=== PATIENT | female | born 1945 | race Caucasian/White ===

== ENCOUNTER 2017-11-12 17:17 | Observation (INO) | payer OTHER, BC ==
[2017-11-12] MEDS ORDERED: ACETAMINOPHEN 500 MG TAB PO PRN (17:45)
[2017-11-12] MEDS ORDERED: ONDANSETRON 4 MG/2 ML VIAL IV PRN (17:45)
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
[2017-11-12] MEDS ORDERED: BACLOFEN 10 MG TAB PO PRN (18:10)
[2017-11-12 18:39] VITALS: BMI 22.6
[2017-11-12 18:42] LABS: Absolute Lymphocytes (CBC) 1.3 K/uL (0.7-4.9); Absolute Monocytes 0.8 K/uL (0.1-1.3); Absolute Neutrophil 4.7 K/uL (1.8-8.0); Basophils % 1.2 % (0-1.3); Eosinophils % 10.2 % (0-4.4); Hematocrit 40.4 % (36.0-45.0); Lymphocytes % 16.9 % (15.3-44.8); MCH 25.9 pg (27.0-35.0); MCV 79.3 fL (80-100); MPV 9.2 fL (7.6-11.3); Monocytes % 10.6 % (3.3-12.3); RBC Red Blood Cell Count 5.09 M/uL (3.86-4.86)
[2017-11-12 19:35] LABS: Albumin 4.5 g/dL (3.2-5.5); Bilirubin Total 0.7 mg/dL (0.3-1.2); Magnesium 2.1 mg/dL (1.8-2.5)
[2017-11-12 19:39] LABS: Thyroid Stimulating Hormone 6.64 uIU/mL (0.34-5.60)
[2017-11-12] MEDS ORDERED: CEFEPIME/SWI 1gm 1 GM/10 ML SYR IV SCH (21:00)
[2017-11-12] MEDS ORDERED: CEFEPIME 1 GM/VIAL IV SCH (21:00)
[2017-11-12] MEDS ORDERED: TOLTERODINE LA 4 MG CAP PO SCH (21:00)
[2017-11-12] MEDS ORDERED: AMITRIPTYLINE 10 MG TAB PO SCH (21:00)
[2017-11-12 21:03] LABS: Urine Appearance CLOUDY; Urine Bilirubin NEGATIVE (NEG); Urine Blood TRACE (NEG); Urine Color YELLOW; Urine Glucose NEGATIVE (NEG); Urine Protein NEGATIVE (NEG); Urine Specific Gravity 1.015 (1.005-1.030); Urine Urobilinogen 0.2 mg/dL (0.2-1.0)
[2017-11-12 21:18] LABS: Urine Microscopic Reflex ORDER UMIC
[2017-11-12 21:22] LABS: Urine Bacteria <20 /HPF (<20); Urine Culture Reflex Order REFLEXED; Urine RBC <5 /HPF (NONE SEEN)
[2017-11-12] MEDS: GABAPENTIN 300 MG CAP PO SCH (22:13)
[2017-11-12] MEDS: ENOXAPARIN 40 MG/0.4 ML SQ SCH (22:16)
--- NOTE | 2017-11-12 22:35 | RAD REPORT ---
EXAM DESCRIPTION: RAD - Chest Single View - 11/12/2017 10:27 pm CLINICAL HISTORY: PICC line placement. COMPARISON: None. FINDINGS: Portable chest was obtained following placement of a right upper extremity PICC line. The catheter tip is in the SVC.
[2017-11-13] MEDS ORDERED: LEVOTHYROXINE SOD 0.05 MG TABLET PO SCH (06:00)
[2017-11-13] MEDS ORDERED: LEVOTHYROXINE SOD 0.125 MG TAB PO SCH (06:00)
[2017-11-13] MEDS ORDERED: PANTOPRAZOLE 40MG TABLET PO SCH (07:30)
[2017-11-13] MEDS ORDERED: PNEUMOCOCCAL VACCINE 0.5 ML IMVAC ONE (08:00)
[2017-11-13] MEDS: ENOXAPARIN 40 MG/0.4 ML SQ SCH (08:34)
[2017-11-13] MEDS: GABAPENTIN 300 MG CAP PO SCH ×2 (08:34→13:19)
[2017-11-13] MEDS ORDERED: CEFEPIME/SWI 1gm 1 GM/10 ML SYR IV SCH (09:00)
[2017-11-13] MEDS ORDERED: DALFAMPRIDINE 10 MG PO SCH (09:00)
--- NOTE | 2017-11-13 10:09 | ECHO ---
HEIGHT: 5 ft 5 in WEIGHT: 136 lb 0 oz DATE OF STUDY: 11/13/[address]: Keon Rosales DO 2-DIMENSIONAL: YES M.MODE: YES DOPPLER: YES COLOR FLOW: YES TDS: PORTABLE: DEFINITY: BUBBLE STUDY: DIAGNOSIS: EVALUATE FOR CONGESTIVE HEART FAILURE CARDIAC HISTORY: CATHERIZATION: NO SURGERY: NO PROSTHETIC VALVE: NO PACEMAKER: NO MEASUREMENTS (cm) DIASTOLIC (NORMALS) SYSTOLIC (NORMALS) IVSd 0.9 (0.6-1.2) LA Diam 2.9 (1.9-4.0) LVEF 76% LVIDd 3.1 (3.5-5.7) LVIDs 1.8 (2.0-3.5) %FS 44% LVPWd 1.0 (0.6-1.2) Ao Diam 2.5 (2.0-3.7) 2 DIMENSIONAL ASSESSMENT: RIGHT ATRIUM: NORMAL LEFT ATRIUM: NORMAL RIGHT VENTRICLE: NORMAL LEFT VENTRICLE: NORMAL TRICUSPID VALVE: NORMAL MITRAL VALVE: NORMAL PULMONIC VALVE: NORMAL AORTIC VALVE: SCLEROSIS PERICARDIAL EFFUSION: NONE AORTIC ROOT: NORMAL LEFT VENTRICULAR WALL MOTION: NORMAL DOPPLER/COLOR FLOW: NO AORTIC STENOSIS OR AORTIC REGURGITATION. MILD TRICUSPID REGURGITATION. NORMAL RIGHT VENTRICULAR SYSTOLIC PRESSURE. IMPAIRED LEFT VENTRICULAR RELAXATION. COMMENTS: NORMAL LEFT VENTRICULAR EJECTION FRACTION. AORTIC SCLEROSIS WITH NO AORTIC STENOSIS OR AORTIC REGURGITATION. MILD TRICUSPID REGURGITATION. IMPAIRED LEFT VENTRTRICULAR RELAXATION. TECHNOLOGIST: SANJEEV ARNDT
--- NOTE | 2017-11-13 10:21 | P.PN ---
Subjective Date of Service: 11/13/17 Primary Care Provider: Dr. García Chief Complaint: Failed outpatient UTI, multi resistant Subjective: Improving (No complaints noted. PICC line in place) Physical Examination - Vital Signs Temperature: 97.7 F Blood Pressure: 135/62 Pulse: 73 Respirations: 18 Pulse Ox (%): 97 - Physical Exam General: Alert, In no apparent distress, Oriented x3, Cooperative HEENT: Atraumatic Neck: Supple Respiratory: Clear to auscultation bilaterally, Normal air movement Cardiovascular: Normal pulses, Regular rate/rhythm Gastrointestinal: Normal bowel sounds, Soft and benign, Non-distended, No masses , No rebound, No guarding Musculoskeletal: No erythema, No tenderness, No warmth Integumentary: No erythema, No warmth, No cyanosis Neurological: Normal speech, Normal strength at 5/5 x4 extr, Normal tone, Normal affect - Studies Laboratory Data (last 24 hrs) 11/12/17 18:30: Sodium 141, Potassium 4.0, BUN 15, Creatinine 0.84, Glucose 105 , Magnesium 2.1, Total Bilirubin 0.7, AST 20, ALT 15, Alkaline Phosphatase 87 11/12/17 18:30: WBC 7.7, Hgb 13.2, Hct 40.4, Plt Count 291 Medications List Reviewed: Yes Assessment & Plan - Problems (Diagnosis) (1) UTI (urinary tract infection) Onset Date: 11/13/17 Current Visit: Yes Status: Acute Plan: Patient with multi resistant, failed outpatient UTI. Patient positive for Pseudomonas and Acintobacter. Will continue with cefepime. Will arrange for IV antibiotic therapy for 7 days. If approved and set up then the patient can be discharged home. Patient will need home health for PICC line care. Repeat urine culture obtained. This can be further monitored by her PCP. Lab reviewed. Will recommend that she follow up with urology as an outpatient to further evaluate Qualifiers: Urinary tract infection type: site unspecified Hematuria presence: without hematuria Qualified Code(s): N39.0 - Urinary tract infection, site not specified (2) Edema Onset Date: 11/13/17 Current Visit: Yes Status: Acute Plan: Patient with bilateral edema to the lower extremities. EKG shows ejection fraction 76%. Will recommend a 1500 cc per day fluid restriction. Will need to monitor this closely. This can be further addressed as an outpatient. Qualifiers: Edema type: unspecified Qualified Code(s): R60.9 - Edema, unspecified (3) Urinary incontinence Onset Date: 11/13/17 Current Visit: Yes Status: Chronic Plan: Patient with chronic urinary incontinence. Will continue with her medication. Recommendation is for the patient follow up with urology as an outpatient to further evaluate. Qualifiers: Urinary Incontinence type: unspecified incontinence Qualified Code(s): R32 - Unspecified urinary incontinence (4) Hypothyroidism Onset Date: 11/13/17 Current Visit: Yes Status: Chronic Plan: Will continue with her medication. Qualifiers: Hypothyroidism type: unspecified Qualified Code(s): E03.9 - Hypothyroidism , unspecified (5) Multiple sclerosis Onset Date: 11/13/17 Current Visit: Yes Status: Chronic Plan: Will continue with her medication. Discharge Plan: Home Plan to discharge in: 24 Hours Time Spent Managing Pts Care (In Minutes): 55
--- NOTE | 2017-11-13 11:48 | P.DS ---
Admission Date: 11/12/17 Discharge Date: 11/13/17 Primary Care Provider: Dr. García Disposition: ROUTINE DISCHARGE Discharge Condition: GOOD Reason for Admission: Failed outpatient UTI, multi resistant Procedures: PICC line placement Echocardiogram: Ejection fraction 76%. Aortic sclerosis with no aortic stenosis or regurgitation noted. Mild tricuspid regurgitation. - Problems (1) UTI (urinary tract infection) Onset Date: 11/13/17 Current Visit: Yes Status: Acute Qualifiers: Urinary tract infection type: site unspecified Hematuria presence: without hematuria Qualified Code(s): N39.0 - Urinary tract infection, site not specified (2) Edema Onset Date: 11/13/17 Current Visit: Yes Status: Acute Qualifiers: Edema type: unspecified Qualified Code(s): R60.9 - Edema, unspecified (3) Urinary incontinence Onset Date: 11/13/17 Current Visit: Yes Status: Chronic Qualifiers: Urinary Incontinence type: unspecified incontinence Qualified Code(s): R32 - Unspecified urinary incontinence (4) Hypothyroidism Onset Date: 11/13/17 Current Visit: Yes Status: Chronic Qualifiers: Hypothyroidism type: unspecified Qualified Code(s): E03.9 - Hypothyroidism , unspecified (5) Multiple sclerosis Onset Date: 11/13/17 Current Visit: Yes Status: Chronic Brief History of Present Illness: 72-year-old female presented to the hospital as a direct admit for fell the patient UTI with multi resistant bacteria. The patient was recently on Cipro started for UTI. Urine culture was obtained. Urine culture was done on 11/05/2017. Urine culture result showed positive for Pseudomonas and Acinetobacter. Multi resistance was noted. The patient required IV antibiotic therapy. The patient was admitted to start therapy. The patient reports some dysuria. She denies any fever or chills. Some discomfort noted to the pelvic region. The patient further reports that she has been hospitalized recently for multiple events. In August she had a severe case of zoster to the right eye. This required hospitalization and transfer to a long-term acute care facility. During the process she had hearing loss. After that she was sent to a rehab facility for for the month of September and October. She eventually went home. That is when she developed the UTI. When I saw the patient, she was without any significant distress. Patient with history of hypothyroidism, multiple sclerosis. She is currently taking medication for urinary incontinence. Hospital Course: During her stay patient did well. Patient did not appear septic. White count and pro calcitonin was unremarkable. Previous information reviewed. Patient has multi resistant failed outpatient UTI. Urine culture was positive for Pseudomonas and Acinetobacter. Arrangements for PICC line was arranged. Patient now with PICC line. Arrangements for IV antibiotic therapy-cefepime 1 g daily as an outpatient with the help of home health has been made. She will continue with IV antibiotic therapy for 7 days. Recommendation is to recheck a cath urine in 7 days. If negative PICC line can be removed. This will be addressed by her PCP. I will inform the PCP prior to discharge. Recommendations for the patient follow up with urology as an outpatient to further monitor and evaluate. UTI prevention education will be provided. Patient with multiple sclerosis. Patient continue with her medications. Patient with hypothyroidism. Patient will continue with medication. Patient has urinary incontinence. Patient will continue with her medication. Patient has mild edema to the lower extremity. Recommendation is to maintain a 1500 cc per day fluid restriction. She is to elevate her legs when sitting or standing. Echocardiogram unremarkable. Vital Signs/Physical Exam: Temp Pulse Resp BP Pulse Ox 97.7 F 73 18 135/62 97 11/13/17 10:20 11/13/17 10:20 11/13/17 10:20 11/13/17 10:20 11/13/17 10:20 General: Alert, In no apparent distress, Oriented x3, Cooperative HEENT: Atraumatic, Mucous membr. moist/pink Neck: Supple Respiratory: Clear to auscultation bilaterally, Normal air movement Cardiovascular: Normal pulses, Regular rate/rhythm Gastrointestinal: Normal bowel sounds, Soft and benign, Non-distended, No tenderness, No masses, No rebound, No guarding Musculoskeletal: No erythema, No tenderness, No warmth Integumentary: No erythema, No warmth, No cyanosis Neurological: Normal speech, Normal strength at 5/5 x4 extr, Normal tone, Normal affect Lymphatics: No axilla or inguinal lymphadenopathy Laboratory Data at Discharge: WBC 7.7 K/uL (4.3-10.9) 11/12/17 18:30 Hgb 13.2 g/dL (12.0-15.0) 11/12/17 18:30 Hct 40.4 % (36.0-45.0) 11/12/17 18:30 Plt Count 291 K/uL (152-406) 11/12/17 18:30 Sodium 141 mEq/L (135-145) 11/12/17 18:30 Potassium 4.0 mEq/L (3.6-5.0) 11/12/17 18:30 BUN 15 mg/dL (6-20) 11/12/17 18:30 Creatinine 0.84 mg/dL (0.44-1.00) 11/12/17 18:30 Glucose 105 mg/dL (65-120) 11/12/17 18:30 Magnesium 2.1 mg/dL (1.8-2.5) 11/12/17 18:30 Total Bilirubin 0.7 mg/dL (0.3-1.2) 11/12/17 18:30 AST 20 IU/L (10-42) 11/12/17 18:30 ALT 15 IU/L (10-60) 11/12/17 18:30 Alkaline Phosphatase 87 IU/L (42-121) 11/12/17 18:30 Home Medications: Baclofen [Lioresal*] 10 mg PO BID 11/12/17 Dalfampridine [Ampyra] 10 mg PO BID 11/12/17 Gabapentin [Neurontin] 300 mg PO TID 11/12/17 Levothyroxine Sodium [Synthroid] 175 mcg PO DAILY 11/12/17 Tolterodine Tartrate [Detrol LA*] 4 mg PO BEDTIME cap 11/13/17 Patient Discharge Instructions: 1. Patient will need a follow up with her PCP within 1 week to follow up this hospitalization. 2. Patient presented with multi resistant failed outpatient UTI. Patient now has a PICC line. Arrangements for IV antibiotic therapy-cefepime 1 g daily as an outpatient with the help of home health has been made. She will continue with IV antibiotic therapy for 7 days. Recommendation is to recheck a cath urine in 7 days. If negative PICC line can be removed. This will be addressed by her PCP. Recommendations for the patient follow up with urology as an outpatient to further monitor and evaluate. UTI prevention education will be provided. 3. Patient with multiple sclerosis. Patient continue with her medications. 4. Patient with hypothyroidism. Patient will continue with medication. 5. Patient has urinary incontinence. Patient will continue with her medication. 6. Patient has mild edema to the lower extremity. Recommendation is to maintain a 1500 cc per day fluid restriction. She is to elevate her legs when sitting or standing. Echocardiogram unremarkable. Diet: Regular Activity: Fall precautions Time spent managing pt's care (in minutes): 55
[2017-11-13 12:29] VITALS: O2SAT 95
[2017-11-13] MEDS ORDERED: CEFEPIME/SWI 1gm 1 GM/10 ML SYR IV ONE (12:45)
[2017-11-13 14:14] VITALS: BP 140/60; TEMP 97.3
[2017-11-14] MEDS ORDERED: CEFEPIME/SWI 2gm 2 GM/20 ML SYR IV SCH (09:00)
== END 2017-11-13 16:47 | disposition home health service (06) ==
LOC: INTOOBSV 17:39 → 4TH 17:39
PROVIDERS: ADMIT Family Medicine; ATTEND Family Medicine
PROC: 02HV33Z Insertion of Infusion Device into Superior Vena Cava, Percutaneous Approach (ICD-10-PCS; principal; 2017-11-12)
DX: N39.0 Urinary tract infection, site not specified (principal); R32 Unspecified urinary incontinence; E03.9 Hypothyroidism, unspecified; R60.0 Localized edema; G35 Multiple sclerosis; M19.90 Unspecified osteoarthritis, unspecified site
CPT/HCPCS: 36415; 36569; 71045; 80053; 83605; 83735; 84145; 84439; 84443; 85025; 87040 ×2; 87086; 87088; 87205; 93306; G0378; G0379; J0692 ×3; J1650 ×2; 81003; 81015

== ENCOUNTER 2018-03-05 09:04 | Day surgery (SDC) | payer OTHER, BC ==
--- NOTE | 2018-03-05 09:26 | RAD REPORT ---
EXAM DESCRIPTION: RAD - Chest Pa And Lat (2 Views) - 03/05/2018 9:03 am CLINICAL HISTORY: preop Chest pain. COMPARISON: Chest Single View dated 11/12/2017; Chest Single View dated 08/11/2017; CHEST PA AND LAT 2 VIEW dated 08/24/2008; CHEST PA AND LAT 2 VIEW dated 01/08/2008 FINDINGS: The lungs are clear. The heart is mildly prominent in size. Postsurgical clips are present in the neck. No displaced fractures. Prominent kyphosis of the spine seen.
[2018-03-05] MEDS ORDERED: Ringers Lactate 1,000 ML IV ONE (09:48)
[2018-03-05] MEDS ORDERED: CEFAZOLIN/SWI 1gm 1 GM/10 ML SYR ONE (09:48)
[2018-03-05] MEDS ORDERED: FENTANYL CITR 100 MCG/2 ML ONE (11:32)
[2018-03-05] MEDS ORDERED: LIDOCAINE 2% MPF 5 ML VIAL ONE (11:32)
[2018-03-05] MEDS ORDERED: PROPOFOL 200 MG/20 ML VIAL IV ONE (11:32)
[2018-03-05] MEDS ORDERED: MIDAZOLAM HCL 2 MG/2 ML INJ ONE (11:32)
[2018-03-05] MEDS ORDERED: KETOROLAC 30 MG/ML INJ ONE (12:50)
[2018-03-05 13:30] VITALS: O2SAT 100
[2018-03-05] MEDS ORDERED: HYDROCODONE/APAP 7.5/325 MG TAB ONE (14:23)
--- NOTE | 2018-03-05 14:35 | EKG ---
Test Date: 2018-03-05 Test Time: 08:34:50 Manager Recruitment: MYESHA MEASUREMENT RESULTS: Intervals: Rate: 83 CA: 168 QRSD: 68 QT: 384 QTc: 451 [place]: P: 84 CA: 168 QRS: 73 T: 75 INTERPRETIVE STATEMENTS: Normal sinus rhythm Cannot rule out Anterior infarct, age undetermined Abnormal ECG Compared to ECG 08/11/2017 18:47:21 Myocardial infarct finding now present Electronically Signed On 03-05-18 14:34:19 CDT by Hadley Jenkins
[2018-03-05 14:40] VITALS: BP 131/60; TEMP 98
--- NOTE | 2018-03-05 23:33 | OP ---
Date of Procedure: 03/05/2018 Surgeon: Moreno Gates MD Preoperative Diagnosis: Scalp mass x2. Postoperative Diagnosis: Scalp mass x2. Procedure: Excision of scalp mass x2, 4 x 2 cm and 3 x 1 cm with layered closure Estimated Blood Loss: Minimal. Specimen: Scalp mass x2. Findings: Anesthesia: General. Complications: None. Disposition: The patient tolerated the procedure in stable condition and taken to Recovery in good g eneral condition. Operative Note: The patient was brought to the OR and placed in supine position. General anesthesia was begun. The patient was prepped and draped in the usual sterile fashion. Lidocaine 1% infiltrat ed locally. Then 15 blade used to make a 4 cm incision in the right posterior scalp. Subcutaneous t issue divided and a large 4 x 2 cm cyst excised, sent to Pathology for identification and then wound irrigated, bleeding controlled with cautery. A 3-0 chromic used to approximate subcutaneous tissue, and 3-0 nylon was used to close skin. Sterile dressing applied and then a 3 cm incision made over th e left scalp on the most superior aspect. Subcutaneous tissue divided. Benign cyst excised, sent to Pathology as specimen. 3-0 chromic used to approximate subcutaneous tissue, and then 3-0 nylon used to close skin. Sterile dressing was applied. The patient was awakened and taken to Recovery in goo d general condition. Discharge Note: The patient will go to Day surgery and home when stable. Disposition: Home. Condition: Stable. Discharge Instructions: Resume home medications and diet. Activities: No heavy lifting. Remove outer dressing in 2 days. Shower. Keep wound clean and dry. Follow up in my office in [address] [place] [id number]. Call for appointment. Tylenol No.3 one tablet p.o. q.4 p.r.n. Neosporin to the wound daily. /TAMELA Voice ID: [id number] Report ID: [id number]
== END 2018-03-05 14:55 | disposition home or self-care (01) ==
LOC: OR 09:04
PROVIDERS: ATTEND Surgery
PROC: 0JB00ZZ Excision of Scalp Subcutaneous Tissue and Fascia, Open Approach (ICD-10-PCS; principal; 2018-03-05 10:00)
DX: L72.11 Pilar cyst (principal)
CPT/HCPCS: 11423; 11426; 71046; 88305; 93005; J0690; J2250; 88304; J3010

== ENCOUNTER 2018-06-20 06:35 | Day surgery (SDC) | payer OTHER, BC ==
[2018-06-17 15:29] LABS: Urine Appearance TURBID; Urine Bilirubin NEGATIVE (NEG); Urine Blood 2+ (NEG); Urine Color YELLOW; Urine Glucose NEGATIVE (NEG); Urine Protein 1+ (NEG); Urine Urobilinogen 0.2 mg/dL (0.2-1.0)
[2018-06-17 15:34] LABS: Urine Microscopic Reflex ORDER UMIC
[2018-06-17 15:57] LABS: Urine Bacteria 20-50 /HPF (<20); Urine Culture Reflex Order REFLEXED
[2018-06-20] MEDS ORDERED: PROPOFOL 200 MG/20 ML VIAL IV ONE (07:00)
[2018-06-20] MEDS ORDERED: FENTANYL CITR 100 MCG/2 ML ONE (07:00)
[2018-06-20] MEDS ORDERED: ONDANSETRON HCL 40 MG/20 ML VIAL ONE (07:03)
[2018-06-20] MEDS ORDERED: LIDOCAINE 1% MPF 2 ML AMPULE ONE (07:05)
[2018-06-20] MEDS ORDERED: Ringers Lactate 1,000 ML IV ONE (07:08)
[2018-06-20] MEDS ORDERED: BOTU TOX TYPE A 100 UNIT/VIAL ID ONE (07:26)
[2018-06-20] MEDS ORDERED: LIDOCAINE 1% W/EPI 1:100,000 MDV 50 ML VIAL ONE (07:42)
[2018-06-20] MEDS ORDERED: NS 0.9% VIAL 10 ML ONE (07:42)
[2018-06-20] MEDS ORDERED: Levofloxacin500mg IV 500 MG/100 ML BAG IV ONE (08:20)
[2018-06-20 08:50] VITALS: TEMP 98
[2018-06-20 09:01] VITALS: O2SAT 99
[2018-06-20 15:46] VITALS: BP 138/61
--- NOTE | 2018-06-20 19:28 | OP ---
Date of Procedure: 06/20/2018 Surgeon: Yamile Montes MD Preoperative Diagnoses: The patient with severe urinary incontinence, neurogenic bladder. Postoperative Diagnoses: The patient with severe urinary incontinence, neurogenic bladder and bladde r mass. Procedure Performed: Cystourethroscopy. Anesthesia: General with LMA. Specimens: None. Complications: None. Drains: None. Condition: Stable. Indications: The patient is a 73-year-old lady who presented with severe urinary incontinence and hi story of recurrent urinary tract infections referred by her primary provider. The patient was evalua giovanny and treated. She did not have any positive cultures. She underwent urodynamic studies where it was demonstrated that she had high bladder pressures, very poor ability to fill the bladder, and inco ntinence with any amount of filling, so on analyzing the data, which were consistent with the neuroge kayla bladder, I referred the patient to a urologist. The patient was seen and evaluated. She was giv en a diagnosis of overactive bladder secondary to neurogenic causes from her worsening multiple scler osis. She has been on anticholinergics, which were completely ineffective. She was started on a bet a-3 agonist, dose increased to 50, still without any improvement in her leakage. She was advised to have Botox injections to her bladder alongside treatment with a beta-3 agonist. She came back to me for her Botox injections and her urologist was willing to have her followed up with me, so she was br ought to the OR, consented for cystoscopy and Botox injections. She was continued on Myrbetriq 50 mg daily. She was given Macrobid 100 mg daily as a prophylactic dose for bacterial cystitis. Preopera tively, her urine specimen did show E. coli. However, her symptoms at baseline have not changed, so we decided to proceed with her procedure, and she was brought to the OR. Description Of Procedure: After informed consent was verified, the patient was given 500 mg of Levaq uin. She was taken to the OR, placed in a supine fashion. General anesthesia given with LMA, placed in a dorsal lithotomy position. Pelvic exam performed. No anterior vaginal wall abnormalities. No evidence of any prolapse. Prep x3 with Betadine was done in the periurethral and vaginal areas. Th en, a 17-Persian sheath, 30-degree lens normal saline for distention medium. Cystoscopy was performed . On inspecting the bladder, there were snowflake-like particulate matter in her urine. The bladder was irrigated and drained, then after reintroducing the cystoscope, I was able to visualize a bladde r mass about 1 cm in the left dome of her bladder. The rest of the bladder appeared to have severe t rabeculations. Ureteric orifices were visualized and normal. The mass appeared to be necrotic. How ever, no biopsies were done at this point as that is not my field of expertise, so optimal images wer e captured. The urethroscopy was performed as I was coming out. No evidence of any tumors, divertic lizette, or ulcerations were present in the urethra or the rest of the bladder. The bladder was then jackie markd with the sheath and then the procedure completed. Instrument, sponge counts were done and were correct at the end of the case. The patient tolerated the procedure. The Botox injections were not given due to the fact that there was a possible bladder mass in this patient. She was recovered from anesthesia safely without any problems and taken to PACU. Estimated Blood Loss: Minimal. She will be referred back to Dr. Sweeney for evaluation of this. She will finish her Cipro 500 b.i.d . for 7 days and will do a followup test of cure. She will continue on her Myrbetriq 50 mg. ALBIN/TAMELA Voice ID: [id number] Report ID: [id number]
== END 2018-06-20 12:10 | disposition home or self-care (01) ==
LOC: OR 06:35
PROVIDERS: ATTEND Obstetrics & Gynecology
PROC: 0TJB8ZZ Inspection of Bladder, Via Natural or Artificial Opening Endoscopic (ICD-10-PCS; principal; 2018-06-20 07:30)
DX: N31.9 Neuromuscular dysfunction of bladder, unspecified (principal); N39.498 Other specified urinary incontinence; N32.81 Overactive bladder; N32.9 Bladder disorder, unspecified; N39.0 Urinary tract infection, site not specified; N95.2 Postmenopausal atrophic vaginitis; I10 Essential (primary) hypertension; G35 Multiple sclerosis
CPT/HCPCS: 52000; 87077; 87086; 87088; 87186; J2001; J2405; J2704; J3010; 81003; 81015; J0585

== ENCOUNTER 2018-10-15 09:52 | Inpatient (IN) | payer OTHER, BC ==
--- OUTSIDE RECORDS SUMMARY | 2018-10-15 09:55 | XMS REPORT ---
:1945 Author Organization [facility] Address [address] [place] [address] Care Team Providers Name Role Phone KWAME APARICIO Unavailable Unavailable Problems This patient has no known problems. Allergies, Adverse Reactions, Alerts This patient has no known allergies or adverse reactions. Medications This patient has no known medications. Results Test Description Test Time Test Comments Text Results Atomic Results Result Comments TISSUE EXAM 2018-09-16 15:22:00 Surgical Pathology Report Case: [id number] Authorizing Provider: Kwame Aparicio MD Collected: 09/12/2018 0835 Ordering Location: [facility] Received: 09/12/2018 1147 SERVICES Pathologist: Andreas Tate MD Specimen: Bladder Biopsy, left anterior bladder wall leukoplakia A. URINARY BLADDER, LEFT ANTERIOR WALL, BIOPSY: - KERATINIZING SQUAMOUS METAPLASIA - MUSCULARIS PROPRIA IS PRESENT - NEGATIVE FOR DYSPLASIA/CARCINOMA Signing Pathologist Direct Phone Line: [phone] signed by Andreas Tate MD on 09/16/2018 at 3:22 [id number] neoplasm of overlapping sites of bladder Left anterior bladder wall leukoplakiaThe specimen is received in a formalin-filled container labeled with the patient's information and labeled "left anterior bladder wall leukoplakia" and consists of multiple fragments of blue-purple hemorrhagic soft tissue measuring 1 x 0.8 x 0.3 cm in aggregate, submitted entirely in A1. CG/ew Performed CYTOLOGY 2018-09-13 09:26:00 Medical Cytology Report Case: [id number] Authorizing Provider: Kwame Aparicio MD Collected: 09/12/2018 0842 Ordering Location: [facility] Received: 09/12/2018 0919 SERVICES Pathologist: Emma Cantu MD Specimen: Urine, Bladder Wash URINE BLADDER WASHING (CYTOSPINS): - NEGATIVE FOR HIGH GRADE UROTHELIAL NEOPLASIA Signing Pathologist Direct Phone Line: [phone] signed by Emma Cantu MD on 09/13/2018 at 9:26 [id number] cm bladder mass, status post cystoscopy and bladder biopsyURINE BLADDER [id number] mls bloody; 4 cytospinsCollected: [id number]: [id number], Department of Pathology, [address] [place] [address], [facility], [address] [place] [address], [facility], Department of Pathology, [address] [place] [address], CYTOLOGY REQUEST 2018-09-12 11:01:00 Test Item Value Reference Range Comments CYTOLOGY RESULT POINTER (DREA) (test [id number]) See Separate Report
--- OUTSIDE RECORDS SUMMARY | 2018-10-15 09:55 | XMS REPORT | Clinical Summary ---
:1945 Author Organization [facility] Address [address] [place] [address] Care Team Providers Name Role Phone Unavailable Primary Care Provider Unavailable Allergies No Known Allergies Medications Medication Sig Dispensed Refills Start End Date Status Date cholecalciferol, Take by mouth. 0 Active vitamin D3, (VITAMIN D3 ORAL) folic Take by mouth. 0 Active acid/multivit-min/sebas tein (CENTRUM SILVER ORAL) tolterodine (DETROL Take 4 mg by 0 Active LA) 4 MG 24 hr mouth daily. capsule levothyroxine Take 150 mcg by 0 Active (SYNTHROID, mouth Every LEVOTHROID) 150 MCG morning on an tablet empty stomach. ocrelizumab Inject 0 Active (OCREVUS) 30 mg/mL intravenously Soln every 6 (six) months. valACYclovir Take 1,000 mg by 0 Active (VALTREX) 1000 MG mouth 2 (two) tablet times daily. celecoxib (CELEBREX) Take 200 mg by 0 Active 200 MG capsule mouth every 12 (twelve) hours as needed for Pain. baclofen (LIORESAL) Take 10 mg by 0 Active 10 MG tablet mouth 3 (three) times daily. dalfampridine Take by mouth. 0 Active (AMPYRA) 10 mg Tb12 estradiol (ESTRACE) Place 2 g 0 Active 0.01 % (0.1 mg/gram) vaginally 3 vaginal cream (three) times a week. ciprofloxacin HCl Take 500 mg by 0 Active (CIPRO) 500 MG mouth 2 (two) tablet times daily. amitriptyline Take 25 mg by 0 09/12/19 Discontinued (ELAVIL) 25 MG mouth nightly. 19 tablet phenazopyridine Take 1 tablet 10 tablet 0 09/15/19 (PYRIDIUM) 100 MG (100 mg total) by 9 19 tablet mouth 3 (three) times daily as needed for Pain for up to 3 days. Active Problems Problem Noted Date Bladder mass 09/12/2018 Encounters Date Type Specialty Care Team Description 09/12/2018 Anesthesia Event Yves Moses 09/12/2018 Surgery Fernando Aparicio CYSTOSCOPY,BLADDER MD Ant BIOPSY 09/12/2018 Hospital Encounter Fernando Aparicio MD 09/05/2018 Hospital Encounter Pre-Admission Resource, Oqmt Testing Preadmit Phone after 10/14/2017 Social History Tobacco Use Types Packs/Day Years Used Date Never Smoker Smokeless Tobacco: Never Used Alcohol Use Drinks/Week oz/Week Comments No Alcohol Habits Answer Date Recorded How often do you have a drink containing alcohol? Never 09/05/2018 How many drinks containing alcohol do you have on a typical Not asked day when you are drinking? How often do you have six or more drinks on one occasion? Not asked Sex Assigned at Date Recorded Not on file Job Start Date Occupation Industry Not on file Not on file Not on file Travel History Travel Start Travel End No recent travel history available. Last Filed Vital Signs Vital Sign Reading Time Taken Blood Pressure 134/84 09/12/2018 10:05 AM [employer]ERIALS PLANNING ANALYST Pulse 73 09/12/2018 10:05 AM [employer]S PLANNING ANALYST Temperature 36.8 C (98.3 F) 09/12/2018 10:05 AM [employer]S PLANNING ANALYST Respiratory Rate 16 09/12/2018 10:05 AM [employer]S PLANNING ANALYST Oxygen Saturation 99% 09/12/2018 10:05 AM [employer]S PLANNING ANALYST Inhaled Oxygen Concentration - - Weight 54.7 kg (120 lb 8 oz) 09/12/2018 6:30 AM [employer]ERIALS PLANNING ANALYST Height 165.1 cm (5' 5") 09/12/2018 6:30 AM [employer] PL[employer]ING ANALYST Body Mass Index 20.05 09/12/2018 6:30 AM [employer]S PLANNING ANALYST Plan of Treatment Not on file Procedures Procedure Name Priority Date/Time Associated Diagnosis Comments CYTOLOGY REQUEST Routine 09/12/2018 8:42 Results for this AM [employer] PLANNING ANALYST procedure are in the results section. CYTOLOGY AP Routine 09/12/2018 8:42 Results for this AM [employer] PL[employer]ING ANALYST procedure are in the results section. TISSUE EXAM AP Routine 09/12/2018 8:35 Results for this AM [employer] PL[employer]ING ANALYST procedure are in the results section. CYSTOSCOPY,BLADDER 09/12/2018 7:30 Malignant neoplasm BIOPSY AM [employer]ANNING [employer]NALYST of overlapping sites of bladder (HCC) after 10/14/2017 Results CYTOLOGY REQUEST (09/12/2018 8:42 AM MATERIALS PLANNING ANALYST) Cytology See Separate Report [facility] Specimen Washings - Urine, Bladder Wash Performing Organization Address City/State/Zipcode Phone Number [address] [address] CENTER Cytology (09/12/2018 8:42 AM MATERIALS PLANNING ANALYST) Case Report Medical Cytology Report Case: [id number] [facility] Authorizing Provider:Fernando Aparicio MDCollected: 09/12/2018 0842 [facility] Ordering Location: [facility] Received: 09/12/2018 0919 SERVICES Pathologist: Emma Cantu MD Specimen:Urine, Bladder Wash DIAGNOSIS URINE BLADDER WASHING (CYTOSPINS): [facility] - NEGATIVE FOR HIGH GRADE UROTHELIAL NEOPLASIA [facility] Signing Pathologist Direct Phone Line: [phone] CPT Code(s) 52034 [facility] CLINICAL DATA 1 cm bladder mass, status post cystoscopy and bladder biopsy [facility] SPECIMEN SOURCE URINE BLADDER WASHING [facility] GROSS DESCRIPTION 100 mls bloody; 4 cytospins [facility] Collected: [id number] [facility] Received: [id number] MICROSCOPIC DESCRIPTION PERFORMED. [facility] STATEMENT OF ADEQUACY Satisfactory [facility] Gross assessment was [facility] performed at [place], Department of [facility] Pathology, [address] [place] [address], Technical component was [facility] performed at [place], Department [facility] Pathology, [address] [place] [address], Professional component was [facility] performed at [place], Department of [facility] Pathology, [address] [place] [address], Specimen Washings - Urine, Bladder Wash Narrative Performed At Performing Organization Address City/State/Zipcode Phone Number [facility] [address] [place] [address] [phone] CENTER Tissue Exam (09/12/2018 8:35 AM MATERIALS PLANNING ANALYST) Case Report Surgical Pathology Report Case: [id number] [facility] Authorizing Provider:Fernando Aparicio MDCollected: 09/12/2018 0835 [facility]ENTER [facility] Received: 09/12/2018 1147 SERVICES Pathologist: Andreas Tate MD Specimen:Bladder Biopsy, left anterior bladder wall leukoplakia DIAGNOSIS A. URINARY BLADDER, LEFT ANTERIOR WALL, BIOPSY: [facility] - KERATINIZING SQUAMOUS METAPLASIA [facility] - MUSCULARIS PROPRIA IS PRESENT - NEGATIVE FOR DYSPLASIA/CARCINOMA Signing Pathologist Direct Phone Line: [phone] CPT Code(s) 09970 [facility] MEDICAL CENTER CLINICAL HISTORY Malignant neoplasm of [facility] overlapping sites of [facility] bladder SPECIMEN SOURCE Left anterior bladder wall [facility] leukoplakia [facility] GROSS DESCRIPTION The specimen is received in [facility] a formalin-filled container [facility] labeled with the patient's information and labeled "left anterior bladder wall leukoplakia" and consists of multiple fragments of blue-purple hemorrhagic soft tissue measuring 1 x 0.8 x 0.3 cm in aggregate, submitted entirely in A1. CG/ew MICROSCOPIC DESCRIPTION Performed [facility] Specimen Tissue - Bladder Biopsy Performing Organization Address City/State/Zipcode Phone Number [facility] [address] [place], [place] [id number] CENTER after 10/14/2017 Insurance Payer Benefit Plan / Subscriber ID Type Phone Address Group MEDICARE MEDICARE A B xxxxxxxxxxx Medicare BLUE CROSS/BLUE BC[place] INDEMNITY [place] xxxxxxxxxxxx [facility] [phone] [address] [place] [address]
[2018-10-15 11:05] LABS: Absolute Lymphocytes (CBC) 0.3 K/uL (0.7-4.9); Absolute Monocytes 1.3 K/uL (0.1-1.3); Absolute Neutrophil 19.6 K/uL (1.8-8.0); Basophils % 0.7 % (0-1.3); Hematocrit 30.2 % (36.0-45.0); Lymphocytes % 1.3 % (15.3-44.8); MPV 7.9 fL (7.6-11.3); Monocytes % 6.2 % (3.3-12.3)
[2018-10-15 11:09] LABS: Protime INR 1.17
[2018-10-15 11:28] LABS: ALT/SGPT 10 U/L (12-78); AST/SGOT 7 U/L (15-37); Albumin 2.7 g/dL (3.4-5.0); Alkaline Phosphatase 105 U/L (45-117); BUN Blood Urea Nitrogen 15 mg/dL (7-18); Bicarbonate 27 mmol/L (21-32); Bilirubin Direct 0.2 mg/dL (0-0.2); Bilirubin Total 0.6 mg/dL (0.2-1.0); Glucose Level 133 mg/dL (74-106); Magnesium 1.7 mg/dL (1.8-2.4); NT PRO-BNP 909 pg/mL (<450); Potassium 3.6 mmol/L (3.5-5.1); Protein, Total 5.9 g/dL (6.4-8.2); Sodium Level 140 mmol/L (136-145); Troponin (Emerg Dept Use Only) < 0.02 ng/mL (0.0-0.045)
--- NOTE | 2018-10-15 11:29 | RAD REPORT ---
EXAM DESCRIPTION: RAD - Chest Single View - 10/15/2018 11:15 am CLINICAL HISTORY: Cough COMPARISON: March 2018 TECHNIQUE: AP portable chest image was obtained 1058 hours . FINDINGS: Airspace opacification is present in the mid and lower right lung field. This is superimpo sed on a mild underlying fibrotic pattern. Left lung field and upper right lung field are clear. Patc hy opacification partially obscures the right heart border. Heart and vasculature are normal. No carlo urable pleural effusion and no pneumothorax. No acute bony abnormality seen. No acute aortic findings suspected. IMPRESSION: Small to moderate size right lung base pneumonia.
[2018-10-15] MEDS ORDERED: Levofloxacin 750mg IV 750 MG/150 ML BAG IV ONE (11:51)
[2018-10-15] MEDS ORDERED: PIPER/TAZO/NS 3.375gm 3.375 GM/100 ML BAG ONE (11:51)
[2018-10-15 12:11] LABS: Urine Blood 3+ (NEG); Urine Glucose NEGATIVE (NEG); Urine Protein 2+ (NEG)
[2018-10-15 12:40] LABS: Urine Bacteria >50 /HPF (<20); Urine Culture Reflex Order NOT NEEDED; Urine Mucus MOD /HPF (NONE SEEN)
[2018-10-15 12:41] LABS: Urine Amorphous Sediment 3+ /HPF (NONE SEEN)
--- NOTE | 2018-10-15 12:47 | EDPHYS ---
Physician Documentation [facility] Name: Sepideh Christensen Age: 73 yrs Sex: Female : 1945 Arrival Date: 10/15/2018 Time: 09:53 Bed 20 Private MD: Yesy García ED Physician Amando Dewitt HPI: 10/15 10:35 This 73 yrs old Female presents to ER via EMS with complaints of Pain With cp Urination, General Weakness. 10:35 The patient presents with urinary symptoms, dysuria. cp 10:35 Onset: The symptoms/episode began/occurred 3 day(s) ago. cp 10:35 Associated signs and symptoms: Pertinent positives: dysuria, general weakness, cough, cp Pertinent negatives: fever, vomiting. Severity of symptoms: in the emergency department the symptoms are unchanged, despite home interventions. Historical: - Allergies: 10:00 No Known Allergies; hb - Home Meds: 10:00 amitriptyline 25 mg Oral tab 2 tabs once daily [Active]; Ampyra 10 mg Oral Tb12 1 tab 2 hb times per day [Active]; baclofen 10 mg Oral tab 1 tab 2 times a day [Active]; Celebrex 200 mg Oral cap 1 cap 2 times per day [Active]; gabapentin 300 mg Oral cap 1 cap every 8 hours as needed for pain [Active]; levothyroxine 175 mcg tab 1 tab once daily [Active]; tizanidine 4 mg Oral tab 1 tab every 6 hours [Active]; tolterodine 4 mg Oral cp24 1 cap once daily [Active]; Valtrex 1 gram Oral tab 1 tab 3 times per day [Active]; triamterene-hydrochlorothiazid 37.5-25 mg Oral tab 1 tab once daily [Active]; - PMHx: 10:00 Multiple Sclerosis; hb - Immunization history:: Adult Immunizations up to date. - Social history:: Smoking status: Patient/guardian denies using tobacco. - Ebola Screening: : No symptoms or risks identified at this time. ROS: 10:40 Constitutional: Negative for fever. cp 10:40 Eyes: Negative for injury, pain, redness, and discharge. cp 10:40 ENT: Negative for ear pain, sore throat, difficulty swallowing, difficulty handling secretions. 10:40 Neck: Negative for pain with movement, pain at rest, stiffness. 10:40 Cardiovascular: Negative for chest pain, edema. 10:40 Respiratory: Positive for cough, shortness of breath. 10:40 Abdomen/GI: Negative for abdominal pain, vomiting, diarrhea, constipation. 10:40 : Positive for pain with urination. 10:40 Neuro: Positive for general weakness, Negative for altered mental status, headache. 10:40 All other systems are negative. Exam: 10:45 Constitutional: The patient appears in no acute distress, alert, awake, cp non-diaphoretic, non-toxic, well developed, frail. 10:45 Head/Face: Normocephalic, atraumatic. cp 10:45 Eyes: Periorbital structures: appear normal, Conjunctiva: normal, no exudate, no injection, Sclera: no appreciated abnormality, Lids and lashes: appear normal, bilaterally. 10:45 ENT: External ear(s): are unremarkable, Ear canal(s): are normal, clear, TM's: dullness, bilaterally, Nose: is normal, Mouth: Lips: dry, Oral mucosa: dry, Posterior pharynx: Airway: no evidence of obstruction, patent, Tonsils: are normal in appearance, Uvula: midline, swelling, is not appreciated, erythema, is not appreciated, exudate, is not appreciated. 10:45 Neck: ROM/movement: is normal, is supple, without pain, no range of motions limitations, no meningismus, no nuchal rigidity. 10:45 Chest/axilla: Inspection: normal, Palpation: is normal, no crepitus, no tenderness. 10:45 Cardiovascular: Rate: tachycardic, Rhythm: regular, Edema: is not appreciated, JVD: is not appreciated. 10:45 Respiratory: the patient does not display signs of respiratory distress, Respirations: shallow respirations, that is mild, Breath sounds: bronchial sounds, that are mild, are heard diffusely, decreased breath sounds, that are mild, throughout. 10:45 Abdomen/GI: Inspection: abdomen appears normal, Bowel sounds: active, all quadrants, Palpation: abdomen is soft and non-tender, in all quadrants. 10:45 Skin: cellulitis, is not appreciated, no rash present. 10:45 Neuro: Orientation: to person, place \T\ time. Mentation: is normal, Cerebellar function: is grossly normal, Motor: is normal, Sensation: is normal. 11:06 ECG was reviewed by the Attending Physician. Vital Signs: 09:50 Pulse Ox 93% on R/A; hb 09:55 BP 141 / 40; Pulse 111; Resp 18; Temp 98.3; Pulse Ox 97% on 2 lpm NC; Pain 0/10; hb 11:00 BP 135 / 54; Pulse 98; Resp 18; Pulse Ox 98% on 2 lpm NC; hb 12:00 BP 116 / 50; Pulse 98; Resp 17; Pulse Ox 99% on 2 lpm NC; hb 13:00 BP 117 / 46; Pulse 88; Resp 16; Pulse Ox 97% 2 lpm ; Pain 0/10; hb 14:00 BP 118 / 50; Pulse 89; Resp 15; Pulse Ox 97% on R/A; Pain 0/10; hb MDM: 10:02 Patient medically screened. 11:45 Data reviewed: vital signs, nurses notes, lab test result(s), EKG, radiologic studies, cp plain films. 11:45 Test interpretation: by ED physician or midlevel provider: ECG, plain radiologic cp studies. Response to treatment: the patient's symptoms have markedly improved after treatment. 12:04 Physician consultation: Josie Padilla MD was called at 12:04, left message on voicemail. 12:45 Physician consultation: Alpa Harris MD was called at 12:45, was contacted at 12:45, regarding admission, to the telemetry unit. patient's condition. 10/15 10:25 Order name: Basic Metabolic Panel; Complete Time: 11:39 cp 10/15 13:58 Interpretation: Normal except: GLUC 133; GFR 64; CA 8.1. cp 10/15 10:25 Order name: CBC with Diff; Complete Time: 13:57 cp 10/15 11:13 Interpretation: Normal except: WBC 21.6; HGB 9.8; HCT 30.2; MCV 75.6; MCH 24.6; HARDEEP% cp 90.8; LYM% 1.3; NEUT A 19.6; LYMA 0.3. 10/15 10:25 Order name: LFT's; Complete Time: 11:39 cp 10/15 13:58 Interpretation: Normal except: AST 7; ALT 10; TP 5.9; ALB 2.7; A/G 0.8. cp 10/15 10:25 Order name: Magnesium; Complete Time: 11:39 cp 10/15 10:25 Order name: NT PRO-BNP; Complete Time: 11:39 cp 10/15 10:25 Order name: PT-INR; Complete Time: 11:12 cp 10/15 10:25 Order name: Troponin (emerg Dept Use Only); Complete Time: 11:39 cp 10/15 10:25 Order name: Influenza Screen (a \T\ B); Complete Time: 11:39 cp 10/15 10:25 Order name: Urine Microscopic Only; Complete Time: 12:42 cp 10/15 10:25 Order name: Urine Culture cp 10/15 10:25 Order name: Procalcitonin; Complete Time: 12:21 cp 10/15 10:25 Order name: Lactate; Complete Time: 11:20 cp 10/15 11:20 Interpretation: LAC 0.7; Reviewed. cp 10/15 10:25 Order name: Blood Culture Adult (2) cp 10/15 11:12 Order name: Manual Differential; Complete Time: 13:57 EDMS 10/15 10:25 Order name: XRAY Chest (1 view); Complete Time: 11:39 cp 10/15 10:25 Order name: EKG; Complete Time: 10:26 cp 10/15 10:25 Order name: Cardiac monitoring; Complete Time: 10:50 cp 10/15 10:25 Order name: EKG - Nurse/Tech; Complete Time: 10:50 cp 10/15 10:25 Order name: IV Saline Lock; Complete Time: 10:50 cp 10/15 10:25 Order name: Labs collected and sent; Complete Time: 10:50 cp 10/15 10:25 Order name: O2 Per Protocol; Complete Time: 10:50 cp 10/15 10:25 Order name: O2 Sat Monitoring; Complete Time: 10:50 cp 10/15 10:25 Order name: Cath; Complete Time: 11:35 cp 10/15 10:25 Order name: Urine Dipstick-Ancillary (obtain specimen); Complete Time: 11:35 cp 10/15 11:54 Order name: Urine Dipstick--Ancillary (enter results); Complete Time: 12:21 bd EC:06 Rate is 105 beats/min. Rhythm is regular. SD interval is normal. QRS interval is cp normal. QT interval is normal. Interpreted by me. Reviewed by me. Administered Medications: 10:54 Drug: NS 0.9% 250 ml Route: IV; Rate: bolus; Site: left forearm; hb 11:51 Drug: Zosyn 3.375 grams Route: IVPB; Infused Over: 60 mins; Site: right forearm; hb 11:51 Drug: NS 0.9% 1000 ml Route: IV; Rate: 75 ml/hr; Site: left forearm; hb 11:52 Drug: LevaQUIN 750 mg Volume: 150 ml; Route: IVPB; Infused Over: 90 mins; Site: right hb forearm; Disposition: 15:16 Co-signature as Attending Physician, Amando Dewitt MD I agree with the assessment and [facility] plan of care. Disposition: 10/15/18 12:46 Hospitalization ordered by Alpa Harris for Inpatient Admission. Preliminary diagnosis are Pneumonia due to other specified bacteria, Urinary tract infection, site not specified. - Bed requested for Telemetry/MedSurg (Inpatient). - Status is Inpatient Admission. hb - Condition is Stable. - Problem is new. - Symptoms have improved. UTI on Admission? Yes Signatures: Dispatcher [employer] Isabel Yoder RN RN dw Anderson, Corey, MD MD cha Page, Corey, PA PA Dasha Mayo RN RN hb Corrections: (The following items were deleted from the chart) 11:13 11:12 Normal except: WBC 21.6; HGB 9.8; HCT 30.2; MCV 75.6; MCH 24.6; HARDEEP% 90.8; LYM% cp 1.3; NEUT A 19.6. cp 13:54 12:46 Hospitalization Ordered by Alpa Harris MD for Inpatient Admission. Preliminary dw diagnosis is Pneumonia due to other specified bacteria; Urinary tract infection, site not specified. Bed requested for Telemetry/MedSurg (Inpatient). Status is Inpatient Admission. Condition is Stable. Problem is new. Symptoms have improved. UTI on Admission? Yes. cp 13:58 13:57 Normal except: GLUC 133; GFR 64. cp cp 15:13 13:54 10/15/2018 12:46 Hospitalization Ordered by Alpa Harris MD for Inpatient hb Admission. Preliminary diagnosis is Pneumonia due to other specified bacteria; Urinary tract infection, site not specified. Bed requested for Telemetry/MedSurg (Inpatient). Status is Inpatient Admission. Condition is Stable. Problem is new. Symptoms have improved. UTI on Admission? Yes. dw
--- NOTE | 2018-10-15 12:47 | ER ---
Nurse's Notes [facility] Name: Sepideh Christensen Age: 73 yrs Sex: Female : 1945 Arrival Date: 10/15/2018 Time: 09:53 Bed 20 Private MD: Yesy García Diagnosis: Pneumonia due to other specified bacteria;Urinary tract infection, site not specified Presentation: 10/15 09:53 Presenting complaint: EMS states: Pain with urination and generalized weakness x 3 hb days. SpO2 90% on RA, 99% on 2LNC, BGL 118. 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 Transition of care: patient was not received from another setting of care. Onset of symptoms was October 13, 2018. Risk Assessment: Do you want to hurt yourself or someone else? Patient reports no desire to harm self or others. Care prior to arrival:. 09:53 Method Of Arrival: EMS: [facility] 09:53 Acuity: AKSHAT 3 hb 10:01 Initial Sepsis Screen: Does the patient meet any 2 criteria? No. Patient's initial hb sepsis screen is negative. Does the patient have a suspected source of infection? No. Patient's initial sepsis screen is negative. Historical: - Allergies: 10:00 No Known Allergies; hb - Home Meds: 10:00 amitriptyline 25 mg Oral tab 2 tabs once daily [Active]; Ampyra 10 mg Oral Tb12 1 tab 2 hb times per day [Active]; baclofen 10 mg Oral tab 1 tab 2 times a day [Active]; Celebrex 200 mg Oral cap 1 cap 2 times per day [Active]; gabapentin 300 mg Oral cap 1 cap every 8 hours as needed for pain [Active]; levothyroxine 175 mcg tab 1 tab once daily [Active]; tizanidine 4 mg Oral tab 1 tab every 6 hours [Active]; tolterodine 4 mg Oral cp24 1 cap once daily [Active]; Valtrex 1 gram Oral tab 1 tab 3 times per day [Active]; triamterene-hydrochlorothiazid 37.5-25 mg Oral tab 1 tab once daily [Active]; - PMHx: 10:00 Multiple Sclerosis; hb - Immunization history:: Adult Immunizations up to date. - Social history:: Smoking status: Patient/guardian denies using tobacco. - Ebola Screening: : No symptoms or risks identified at this time. Screenin:01 Abuse screen: Denies threats or abuse. Denies injuries from another. Nutritional hb screening: No deficits noted. Tuberculosis screening: No symptoms or risk factors identified. Fall Risk Total Santana Fall Scale indicates Low Risk Score (25-44 pts). Fall prevention measures have been instituted. Side Rails Up X 2 Frequent Obs/Assesments occuring Family Present and informed to notify staff if they need to leave bedside As available Patient and Family Educated on Fall Prevention Program and strategies. Assessment: 10:00 General: Appears in no apparent distress. ill, Behavior is calm, cooperative. Pain: hb Denies pain. Neuro: Level of Consciousness is awake, alert, obeys commands, Oriented to person, place, time, situation. Cardiovascular: Capillary refill < 3 seconds Patient's skin is warm and dry. Respiratory: Airway is patent Respiratory effort is even, unlabored, Respiratory pattern is regular, symmetrical, Breath sounds are clear bilaterally. GI: No signs and/or symptoms were reported involving the gastrointestinal system. : Reports burning with urination. EENT: No signs and/or symptoms were reported regarding the EENT system. Derm: Skin is intact, is thin, with poor turgor Skin is dry, Skin is pale. Musculoskeletal: Reports generalized weakness. 11:00 Reassessment: Patient appears in no apparent distress at this time. Patient and/or hb family updated on plan of care and expected duration. Pain level reassessed. Patient is alert, oriented x 3, equal unlabored respirations, skin warm/dry/pink. 12:00 Reassessment: Patient appears in no apparent distress at this time. No changes from previously documented assessment. Patient and/or family updated on plan of care and expected duration. Pain level reassessed. Patient is alert, oriented x 3, equal unlabored respirations, skin warm/dry/pink. Family remains at bedside. 13:00 Reassessment: Patient appears in no apparent distress at this time. No changes from previously documented assessment. Patient and/or family updated on plan of care and expected duration. Pain level reassessed. Patient is alert, oriented x 3, equal unlabored respirations, skin warm/dry/pink. Admission ordered, family remains at bedsdie. 14:00 Reassessment: Patient appears in no apparent distress at this time. No changes from hb previously documented assessment. Patient and/or family updated on plan of care and expected duration. Pain level reassessed. Patient is alert, oriented x 3, equal unlabored respirations, skin warm/dry/pink. 14:20 Reassessment: Attempted to call report to floor, receiving nurse unavailable at this hb time. Vital Signs: 09:50 Pulse Ox 93% on R/A; hb 09:55 BP 141 / 40; Pulse 111; Resp 18; Temp 98.3; Pulse Ox 97% on 2 lpm NC; Pain 0/10; hb 11:00 BP 135 / 54; Pulse 98; Resp 18; Pulse Ox 98% on 2 lpm NC; hb 12:00 BP 116 / 50; Pulse 98; Resp 17; Pulse Ox 99% on 2 lpm NC; hb 13:00 BP 117 / 46; Pulse 88; Resp 16; Pulse Ox 97% 2 lpm ; Pain 0/10; hb 14:00 BP 118 / 50; Pulse 89; Resp 15; Pulse Ox 97% on R/A; Pain 0/10; hb ED Course: 09:53 Patient arrived in ED. hb 09:55 Triage completed. hb 09:55 Arm band placed on. hb 10:01 Dasha Wallace, RN is Primary Nurse. hb 10:01 Patient has correct armband on for positive identification. Bed in low position. Call light in reach. Side rails up X2. 10:02 Amando Diaz PA is PHCP. cp 10:02 Amando Dewitt MD is Attending Physician. cp 10:52 Initial lab(s) drawn, by co, sent to lab. First set of blood cultures drawn by co, Flu 3 and/or RSV swab sent to lab. Inserted saline lock: 22 gauge in right forearm, using aseptic technique. Blood collected. 11:04 Yesy García MD is Private Physician. cp 11:04 EKG done, by dental technician metal. reviewed by Amando AVALOS. at1 11:10 Second set of blood cultures drawn by co. 3 11:15 XRAY Chest (1 view) In Process Unspecified. EDMS 11:18 Mejia cath inserted, using sterile technique, 16 Fr., by co, balloon inflated, to dh3 gravity drainage, urine specimen collected. returned cloudy hathaway colored urine with sediment 300mL. Patient tolerated well. 12:45 Alpa Harris MD is Hospitalizing Provider. cp 14:56 No provider procedures requiring assistance completed. Patient admitted, IV remains in rv place. intact. Administered Medications: 10:54 Drug: NS 0.9% 250 ml Route: IV; Rate: bolus; Site: left forearm; hb 11:51 Drug: Zosyn 3.375 grams Route: IVPB; Infused Over: 60 mins; Site: right forearm; hb 11:51 Drug: NS 0.9% 1000 ml Route: IV; Rate: 75 ml/hr; Site: left forearm; hb 11:52 Drug: LevaQUIN 750 mg Volume: 150 ml; Route: IVPB; Infused Over: 90 mins; Site: right hb forearm; Outcome: 12:46 Decision to Hospitalize by Provider. cp 14:56 Admitted to Tele accompanied by tech, via stretcher, room 401, with chart, Report rv called to CLARA MANCIA 14:56 Condition: good 14:56 Instructed on the need for admit, Demonstrated understanding of instructions. 15:13 Patient left the ED. hb Signatures: Dispatcher [employer] EDMS Salina Varner, soda jerker EKG Tat1 Amando Diaz PA PA cp Dasha Wallace, BLANCHE RN Linda Stephens [facility] Arun Simon, RN RN rv Corrections: (The following items were deleted from the chart) 11:38 11:18 Mejia cath inserted, using sterile technique, 16 Fr., by co, balloon inflated, to 3 gravity drainage, urine specimen collected. returned cloudy hathaway colored urine with sediment. Patient tolerated well. [facility] 12:05 09:55 BP 141 / 40; Pulse 111bpm; Resp 18bpm; Pulse Ox 97% RA; Temp 98.3F; Pain 0/10; hb hb 12:05 11:00 BP 116 / 50; Pulse 98bpm; Resp 17bpm; Pulse Ox 99% RA; hb hb 12:05 11:00 BP 135 / 54; Pulse 98bpm; Resp 18bpm; Pulse Ox 98% RA; hb hb
[2018-10-15 12:58] LABS: Anisocytosis 1+; Blood Morphology Comment NOTED (NOT SEEN); Platelet Estimate ADEQ; Polychromasia 1+
[2018-10-15] MEDS: NA CHLORIDE 0.9% 1,000 ML IV SCH (16:23)
[2018-10-15] MEDS ORDERED: POTASSIUM CL SA 10 MEQ TAB PO ONE (16:31)
[2018-10-15] MEDS ORDERED: MAGNESIUM SULFATE 1 gm IVPB 1 GM/100 ML BAG IV ONE (16:32)
[2018-10-15 18:12] VITALS: BMI 19.4
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
[2018-10-16] MEDS: NA CHLORIDE 0.9% 1,000 ML IV SCH ×3 (00:51→22:03)
[2018-10-16] MEDS: GUAIFENESIN/CODEINE 5ML UCUP PO PRN ×2 (00:51→22:04)
[2018-10-16 04:53] LABS: Absolute Lymphocytes (CBC) 0.8 K/uL (0.7-4.9); Absolute Monocytes 1.2 K/uL (0.1-1.3); Absolute Neutrophil 14.9 K/uL (1.8-8.0); Basophils % 0.2 % (0-1.3); Eosinophils % 2.1 % (0-4.4); Hematocrit 26.5 % (36.0-45.0); Lymphocytes % 4.5 % (15.3-44.8); MPV 8.3 fL (7.6-11.3); Monocytes % 7.1 % (3.3-12.3); RBC Red Blood Cell Count 3.44 M/uL (3.86-4.86)
[2018-10-16 05:02] LABS: Albumin 2.3 g/dL (3.4-5.0); Bilirubin Total 0.6 mg/dL (0.2-1.0); Potassium 4.1 mmol/L (3.5-5.1)
[2018-10-16] MEDS: LEVOTHYROXINE SOD 0.075 MG TAB PO SCH (05:52)
[2018-10-16] MEDS: VITAMIN D 1000 UNIT TAB PO SCH (08:56)
[2018-10-16] MEDS: BACLOFEN 10 MG TAB PO SCH ×2 (08:56→22:04)
[2018-10-16] MEDS: PHENAZOPYRIDINE 100MG TAB PO SCH (08:56)
[2018-10-16] MEDS: DALFAMPRIDINE 10 MG PO SCH ×2 (08:57→21:00)
[2018-10-16] MEDS ORDERED: GUAIFENESIN/CODEINE 5ML UCUP PO SCH (09:00)
--- NOTE | 2018-10-16 10:36 | EKG ---
Test Date: 2018-10-15 Test Time: 10:45:31 Supervisor [place]: BASHIR MEASUREMENT RESULTS: Intervals: Rate: 105 VT: 146 QRSD: 74 QT: 344 QTc: 454 [place]: P: 73 VT: 146 QRS: 54 T: 74 INTERPRETIVE STATEMENTS: Sinus tachycardia Minimal voltage criteria for LVH, may be normal variant Cannot rule out Anterior infarct, age undetermined Abnormal ECG Compared to ECG 03/05/2018 08:34:50 Left ventricular hypertrophy now present Sinus rhythm no longer present Myocardial infarct finding still present Electronically Signed On 10-15-18 17:49:14 CDT by Hadley Jenkins
[2018-10-16] MEDS: Levofloxacin 750mg IV 750 MG/150 ML BAG IV SCH (12:18)
--- NOTE | 2018-10-16 19:17 | P.PN ---
Subjective Date of Service: 10/16/18 Subjective: Improving Patient seen and examined at bedside. No family at bedside. Chart reviewed and case discussed with nursing staff. Review of Systems 10-point ROS is otherwise unremarkable Physical Examination - Vital Signs Temperature: 98.5 F Blood Pressure: 131/60 Pulse: 84 Respirations: 16 Pulse Ox (%): 97 - Physical Exam General: Alert, In no apparent distress, Oriented x3 HEENT: Atraumatic, PERRLA, EOMI Neck: Supple, JVD not distended Respiratory: Clear to auscultation bilaterally, Normal air movement Cardiovascular: Regular rate/rhythm, Normal S1 S2 Gastrointestinal: Normal bowel sounds, No tenderness Musculoskeletal: No tenderness Integumentary: No rashes Neurological: Normal speech, Normal tone, Normal affect Lymphatics: No axilla or inguinal lymphadenopathy Assessment And Plan - Current Problems (Diagnosis) (1) Pneumonia Current Visit: Yes Status: Acute Qualifiers: Pneumonia type: due to unspecified organism Laterality: right Lung location: upper lobe of lung Qualified Code(s): J18.1 - Lobar pneumonia, unspecified organism (2) UTI (urinary tract infection) Onset Date: 11/13/17 Current Visit: Yes Status: Acute Qualifiers: Urinary tract infection type: acute cystitis Hematuria presence: without hematuria Qualified Code(s): N30.00 - Acute cystitis without hematuria (3) Hypothyroidism Onset Date: 11/13/17 Current Visit: No Status: Chronic Qualifiers: (4) Multiple sclerosis Onset Date: 11/13/17 Current Visit: No Status: Chronic (5) Urinary incontinence Onset Date: 11/13/17 Current Visit: No Status: Chronic Qualifiers: Urinary Incontinence type: unspecified incontinence Qualified Code(s): R32 - Unspecified urinary incontinence - Plan Pneumonia Continue IV antibiotics with Levaquin Continue supplemental oxygen as needed Continue IVF UTI (urinary tract infection) Continue IV antibiotics as above. Urine cultures pending She will have to reschedule her urology appointment as I believe she may need further evaluation of her incontinence, likely secondary to her MS. This is likely the underlying source of her multiple UTIs. Hypothyroidism Stable, continue home medications Multiple sclerosis Urinary incontinence Chronic history of urinary incontinence. She will have to reschedule Urology appointment (Dr. Kline) upon discharge from here Debility/generalized weakness Physical therapy consult placed DVT prophylaxis: Lovenox GI prophylaxis: None Diet: Regular Disposition: Pending symptomatic improvement
[2018-10-16] MEDS: TOLTERODINE LA 4 MG CAP PO SCH (22:04)
[2018-10-17] MEDS: LEVOTHYROXINE SOD 0.075 MG TAB PO SCH (05:19)
[2018-10-17] MEDS: BACLOFEN 10 MG TAB PO SCH ×2 (08:52→20:50)
[2018-10-17] MEDS: NA CHLORIDE 0.9% 1,000 ML IV SCH ×2 (08:52→17:28)
[2018-10-17] MEDS: VITAMIN D 1000 UNIT TAB PO SCH (08:53)
[2018-10-17] MEDS: DALFAMPRIDINE 10 MG PO SCH ×2 (08:54→20:51)
--- NOTE | 2018-10-17 10:05 | RAD REPORT ---
EXAM DESCRIPTION: Isha Single View10/17/2018 9:36 am CLINICAL HISTORY: Chest pain COMPARISON: October 15, 2018 FINDINGS: Mild improvement in the right basilar opacities. Development of a mild left basilar opaci ties consistent with pneumonia The heart is normal size
[2018-10-17 10:36] LABS: Absolute Lymphocytes (CBC) 0.7 K/uL (0.7-4.9); Absolute Monocytes 0.7 K/uL (0.1-1.3); Absolute Neutrophil 6.2 K/uL (1.8-8.0); Basophils % 0.6 % (0-1.3); Eosinophils % 9.1 % (0-4.4); Hematocrit 30.3 % (36.0-45.0); Lymphocytes % 8.2 % (15.3-44.8); MPV 8.4 fL (7.6-11.3); Monocytes % 8.6 % (3.3-12.3); RBC Red Blood Cell Count 3.89 M/uL (3.86-4.86)
[2018-10-17] MEDS: PHENAZOPYRIDINE 100MG TAB PO SCH (10:52)
[2018-10-17] MEDS: Levofloxacin 750mg IV 750 MG/150 ML BAG IV SCH (11:11)
[2018-10-17 12:14] LABS: BUN Blood Urea Nitrogen 9 mg/dL (7-18); Bicarbonate 28 mmol/L (21-32); Glucose Level 111 mg/dL (74-106); Potassium 4.1 mmol/L (3.5-5.1); Sodium Level 144 mmol/L (136-145)
[2018-10-17] MEDS ORDERED: PNEUMOCOCCAL VACCINE 0.5 ML IMVAC ONE (15:00)
--- NOTE | 2018-10-17 17:37 | P.PN ---
Subjective Date of Service: 10/17/18 Chief Complaint: Pneumonia Subjective: Improving Patient seen and examined at bedside. No family at bedside. Chart reviewed and case discussed with nursing staff. Doing well. States that she does feel weak, unbalanced while walking. She lives by herself at home Review of Systems 10-point ROS is otherwise unremarkable Physical Examination - Vital Signs Temperature: 98.5 F Blood Pressure: 131/60 Pulse: 84 Respirations: 16 Pulse Ox (%): 97 - Physical Exam General: Alert, In no apparent distress, Oriented x3 HEENT: Atraumatic, PERRLA, EOMI Neck: Supple, JVD not distended Respiratory: Clear to auscultation bilaterally, Normal air movement Cardiovascular: Regular rate/rhythm, Normal S1 S2 Gastrointestinal: Normal bowel sounds, No tenderness Musculoskeletal: No tenderness Integumentary: No rashes Neurological: Normal speech, Normal tone, Normal affect Lymphatics: No axilla or inguinal lymphadenopathy - Studies Microbiology Data (last 24 hrs): 10/15/18 10:25 Catheterized Urine [place] Count - Final 10/15/18 10:25 Catheterized Urine - Final No growth. Assessment And Plan - Current Problems (Diagnosis) (1) Pneumonia Current Visit: Yes Status: Acute Qualifiers: Pneumonia type: due to unspecified organism Laterality: right Lung location: upper lobe of lung Qualified Code(s): J18.1 - Lobar pneumonia, unspecified organism (2) UTI (urinary tract infection) Onset Date: 11/13/17 Current Visit: Yes Status: Acute Qualifiers: Urinary tract infection type: acute cystitis Hematuria presence: without hematuria Qualified Code(s): N30.00 - Acute cystitis without hematuria (3) Hypothyroidism Onset Date: 11/13/17 Current Visit: No Status: Chronic Qualifiers: (4) Multiple sclerosis Onset Date: 11/13/17 Current Visit: No Status: Chronic (5) Urinary incontinence Onset Date: 11/13/17 Current Visit: No Status: Chronic Qualifiers: Urinary Incontinence type: unspecified incontinence Qualified Code(s): R32 - Unspecified urinary incontinence (6) Debility Current Visit: Yes Status: Acute (7) Generalized weakness Current Visit: Yes Status: Acute - Plan Pneumonia Continue IV antibiotics with Levaquin Continue supplemental oxygen as needed Leukocytosis improved Afebrile overnight, hemodynamically stable Discontinue IVF as patient eating and drinking well UTI (urinary tract infection) Continue IV antibiotics as above. Urine cultures pending She will have to reschedule her urology appointment as I believe she may need further evaluation of her incontinence, likely secondary to her MS. This is likely the underlying source of her multiple UTIs. Hypothyroidism Stable, continue home medications Multiple sclerosis Urinary incontinence Chronic history of urinary incontinence. She will have to reschedule Urology appointment (Dr. Kline) upon discharge from here Debility/generalized weakness Physical therapy consult placed She would benefit from group home facility placement with some physical therapy. She does live alone, has some imbalance and generalized weakness that would be worrisome for falls short to be home alone. Social work consulted for group home facility placement DVT prophylaxis: Lovenox GI prophylaxis: None Diet: Regular Disposition: Pending symptomatic improvement and placement. Discharge Plan: [facility]
[2018-10-17] MEDS: TOLTERODINE LA 4 MG CAP PO SCH (20:50)
[2018-10-17] MEDS: GUAIFENESIN/CODEINE 5ML UCUP PO PRN (22:05)
[2018-10-18] MEDS: NA CHLORIDE 0.9% 1,000 ML IV SCH ×3 (02:43→22:43)
[2018-10-18] MEDS: LEVOTHYROXINE SOD 0.075 MG TAB PO SCH (05:11)
[2018-10-18] MEDS: BACLOFEN 10 MG TAB PO SCH ×2 (08:57→21:07)
[2018-10-18] MEDS: PHENAZOPYRIDINE 100MG TAB PO SCH (08:57)
[2018-10-18] MEDS: VITAMIN D 1000 UNIT TAB PO SCH (08:57)
[2018-10-18] MEDS: DALFAMPRIDINE 10 MG PO SCH ×2 (08:58→21:00)
[2018-10-18] MEDS: GUAIFENESIN/CODEINE 5ML UCUP PO PRN ×2 (09:01→22:43)
[2018-10-18] MEDS: Levofloxacin 750mg IV 750 MG/150 ML BAG IV SCH (11:55)
--- NOTE | 2018-10-18 13:59 | P.PN ---
Subjective Date of Service: 10/18/18 Chief Complaint: Pneumonia Subjective: No C/O voiced, Improving Patient seen and examined at bedside. No family at bedside. Chart reviewed and case discussed with nursing staff. Doing well. States that she does feel weak, unbalanced while walking. She lives by herself at home Review of Systems 10-point ROS is otherwise unremarkable Physical Examination - Vital Signs Temperature: 98.6 F Blood Pressure: 121/60 Pulse: 92 Respirations: 18 Pulse Ox (%): 93 - Physical Exam General: Alert, In no apparent distress, Oriented x3, Other (Elderly, frail) HEENT: Atraumatic, PERRLA, EOMI Neck: Supple, JVD not distended Respiratory: Clear to auscultation bilaterally, Normal air movement Cardiovascular: Regular rate/rhythm, Normal S1 S2 Gastrointestinal: Normal bowel sounds, No tenderness Musculoskeletal: No tenderness Integumentary: No rashes Neurological: Normal speech, Normal tone, Normal affect Lymphatics: No axilla or inguinal lymphadenopathy Assessment And Plan - Current Problems (Diagnosis) (1) Pneumonia Current Visit: Yes Status: Acute Qualifiers: Pneumonia type: due to unspecified organism Laterality: right Lung location: upper lobe of lung Qualified Code(s): J18.1 - Lobar pneumonia, unspecified organism (2) UTI (urinary tract infection) Onset Date: 11/13/17 Current Visit: Yes Status: Acute Qualifiers: Urinary tract infection type: acute cystitis Hematuria presence: without hematuria Qualified Code(s): N30.00 - Acute cystitis without hematuria (3) Hypothyroidism Onset Date: 11/13/17 Current Visit: No Status: Chronic Qualifiers: (4) Multiple sclerosis Onset Date: 11/13/17 Current Visit: No Status: Chronic (5) Urinary incontinence Onset Date: 11/13/17 Current Visit: No Status: Chronic Qualifiers: Urinary Incontinence type: unspecified incontinence Qualified Code(s): R32 - Unspecified urinary incontinence (6) Debility Current Visit: Yes Status: Acute (7) Generalized weakness Current Visit: Yes Status: Acute - Plan Pneumonia Continue IV antibiotics with Levaquin Continue supplemental oxygen as needed Leukocytosis improved. Afebrile overnight, hemodynamically stable Discontinue IVF as patient eating and drinking well UTI (urinary tract infection) Continue IV antibiotics as above. Urine cultures without any growth She will have to reschedule her urology appointment as I believe she may need further evaluation of her incontinence, likely secondary to her MS. This is likely the underlying source of her multiple UTIs. Hypothyroidism Stable, continue home medications Multiple sclerosis Urinary incontinence Chronic history of urinary incontinence. She will have to reschedule Urology appointment (Dr. Kline) upon discharge from here Debility/generalized weakness Physical therapy consult placed She would benefit from shelter facility placement with some physical therapy. She does live alone, has some imbalance and generalized weakness that would be worrisome for falls short to be home alone. Social work consulted for shelter facility placement, pending DVT prophylaxis: Lovenox GI prophylaxis: None Diet: Regular Disposition: Pending symptomatic improvement and placement.
[2018-10-18] MEDS: TOLTERODINE LA 4 MG CAP PO SCH (21:07)
[2018-10-19] MEDS: LEVOTHYROXINE SOD 0.075 MG TAB PO SCH (05:11)
[2018-10-19 06:34] LABS: Absolute Lymphocytes (CBC) 0.8 K/uL (0.7-4.9); Absolute Monocytes 1.3 K/uL (0.1-1.3); Absolute Neutrophil 7.8 K/uL (1.8-8.0); Basophils % 0.4 % (0-1.3); Hematocrit 26.5 % (36.0-45.0); Lymphocytes % 8.1 % (15.3-44.8); MPV 8.3 fL (7.6-11.3); Monocytes % 12.2 % (3.3-12.3)
[2018-10-19 06:50] LABS: Magnesium 1.8 mg/dL (1.8-2.4); Potassium 3.7 mmol/L (3.5-5.1)
[2018-10-19] MEDS ORDERED: POTASSIUM CL SA 10 MEQ TAB PO ONE (09:00)
[2018-10-19] MEDS ORDERED: MAGNESIUM SULFATE 1 gm IVPB 1 GM/100 ML BAG IV ONE (09:00)
[2018-10-19] MEDS: DALFAMPRIDINE 10 MG PO SCH ×2 (09:00→21:00)
[2018-10-19] MEDS: BACLOFEN 10 MG TAB PO SCH ×2 (09:48→21:06)
[2018-10-19] MEDS: PHENAZOPYRIDINE 100MG TAB PO SCH (09:49)
[2018-10-19] MEDS: VITAMIN D 1000 UNIT TAB PO SCH (09:49)
[2018-10-19] MEDS: NA CHLORIDE 0.9% 1,000 ML IV SCH ×2 (09:51→21:05)
[2018-10-19] MEDS: Levofloxacin 750mg IV 750 MG/150 ML BAG IV SCH (11:03)
[2018-10-19] MEDS: GUAIFENESIN 600 MG SA TAB PO PRN ×2 (11:03→18:44)
[2018-10-19] MEDS ORDERED: DOCUSATE NA 100 MG CAP PO PRN (11:57)
--- NOTE | 2018-10-19 15:38 | P.PN ---
Subjective Date of Service: 10/19/18 Chief Complaint: Pneumonia Subjective: No C/O voiced, Improving Patient seen and examined at bedside. No family at bedside. Chart reviewed and case discussed with nursing staff. Doing well. States that she does feel weak, unbalanced while walking. She lives by herself at home Review of Systems 10-point ROS is otherwise unremarkable Physical Examination - Vital Signs Temperature: 98.2 F Blood Pressure: 140/72 Pulse: 82 Respirations: 18 Pulse Ox (%): 97 - Physical Exam General: Alert, In no apparent distress, Oriented x3 HEENT: Atraumatic, PERRLA, EOMI Neck: Supple, JVD not distended Respiratory: Clear to auscultation bilaterally, Normal air movement Cardiovascular: Regular rate/rhythm, Normal S1 S2 Gastrointestinal: Normal bowel sounds, No tenderness Musculoskeletal: No tenderness Integumentary: No rashes Neurological: Normal speech, Normal tone, Normal affect Lymphatics: No axilla or inguinal lymphadenopathy Assessment And Plan - Current Problems (Diagnosis) (1) Pneumonia Current Visit: Yes Status: Acute Qualifiers: Pneumonia type: due to unspecified organism Laterality: right Lung location: upper lobe of lung Qualified Code(s): J18.1 - Lobar pneumonia, unspecified organism (2) UTI (urinary tract infection) Onset Date: 11/13/17 Current Visit: Yes Status: Acute Qualifiers: Urinary tract infection type: acute cystitis Hematuria presence: without hematuria Qualified Code(s): N30.00 - Acute cystitis without hematuria (3) Hypothyroidism Onset Date: 11/13/17 Current Visit: No Status: Chronic Qualifiers: (4) Multiple sclerosis Onset Date: 11/13/17 Current Visit: No Status: Chronic (5) Urinary incontinence Onset Date: 11/13/17 Current Visit: No Status: Chronic Qualifiers: Urinary Incontinence type: unspecified incontinence Qualified Code(s): R32 - Unspecified urinary incontinence (6) Debility Current Visit: Yes Status: Acute (7) Generalized weakness Current Visit: Yes Status: Acute - Plan Pneumonia Continue IV antibiotics with Levaquin Continue supplemental oxygen as needed Leukocytosis improved. Afebrile overnight, hemodynamically stable Discontinue IVF as patient eating and drinking well UTI (urinary tract infection) Continue IV antibiotics as above. Urine cultures without any growth She will have to reschedule her urology appointment as I believe she may need further evaluation of her incontinence, likely secondary to her MS. This is likely the underlying source of her multiple UTIs. Hypothyroidism Stable, continue home medications Multiple sclerosis Urinary incontinence Chronic history of urinary incontinence. She will have to reschedule Urology appointment (Dr. Kline) upon discharge from here Debility/generalized weakness Physical therapy consult placed She would benefit from [facility] facility placement with some physical therapy. She does live alone, has some imbalance and generalized weakness that would be worrisome for falls short to be home alone. Social work consulted for [facility] facility placement, pending DVT prophylaxis: Lovenox GI prophylaxis: None Diet: Regular Disposition: Pending symptomatic improvement and placement.
[2018-10-19] MEDS: TOLTERODINE LA 4 MG CAP PO SCH (21:06)
[2018-10-19] MEDS: GUAIFENESIN/CODEINE 5ML UCUP PO PRN (22:10)
[2018-10-20] MEDS: NA CHLORIDE 0.9% 1,000 ML IV SCH (04:47)
[2018-10-20 05:02] LABS: BUN Blood Urea Nitrogen 10 mg/dL (7-18); Bicarbonate 28 mmol/L (21-32); Glucose Level 101 mg/dL (74-106); Magnesium 1.9 mg/dL (1.8-2.4); Potassium 3.9 mmol/L (3.5-5.1); Sodium Level 144 mmol/L (136-145)
[2018-10-20 05:07] LABS: Absolute Monocytes 1.1 K/uL (0.1-1.3); Absolute Neutrophil 8.2 K/uL (1.8-8.0); Basophils % 1.2 % (0-1.3); Eosinophils % 6.8 % (0-4.4); Hematocrit 26.3 % (36.0-45.0); Lymphocytes % 8.8 % (15.3-44.8); MPV 8.7 fL (7.6-11.3); RBC Red Blood Cell Count 3.46 M/uL (3.86-4.86)
[2018-10-20] MEDS: LEVOTHYROXINE SOD 0.075 MG TAB PO SCH (05:12)
[2018-10-20] MEDS ORDERED: POTASSIUM CL SA 10 MEQ TAB PO ONE (09:00)
[2018-10-20] MEDS: DALFAMPRIDINE 10 MG PO SCH (09:00)
[2018-10-20] MEDS: VITAMIN D 1000 UNIT TAB PO SCH (09:17)
[2018-10-20] MEDS: BACLOFEN 10 MG TAB PO SCH (09:17)
[2018-10-20] MEDS: GUAIFENESIN 600 MG SA TAB PO PRN (09:17)
[2018-10-20] MEDS: PHENAZOPYRIDINE 100MG TAB PO SCH (09:17)
[2018-10-20 10:11] VITALS: O2SAT 95
[2018-10-20] MEDS: Levofloxacin 750mg IV 750 MG/150 ML BAG IV SCH (11:15)
--- NOTE | 2018-10-20 11:31 | RAD REPORT ---
EXAM DESCRIPTION: RAD - Chest Single View - 10/20/2018 11:18 am CLINICAL HISTORY: Pneumonia Chest pain. COMPARISON: Chest Single View dated 10/17/2018; Chest Single View dated 10/15/2018; Chest Pa And Lat ( 2 Views) dated 03/05/2018; Chest Single View dated 11/12/2017 FINDINGS: Portable technique limits examination quality. Improvement in bibasilar lung opacities since prior study is noted, with mild linear atelectasis pers istent in both lung bases. Moderate cardiomegaly. Prominent thoracolumbar scoliosis is present. Posts urgical clips are present in the neck. IMPRESSION: Significant improvement in bibasilar lung aeration since comparative study with mild per sistent subsegmental atelectasis seen.
--- NOTE | 2018-10-20 12:30 | P.PN ---
Subjective Date of Service: 10/20/18 Chief Complaint: Pneumonia Subjective: Improving Patient seen and examined at bedside. No family at bedside. Chart reviewed and case discussed with nursing staff. Doing well. Has some complaints of cough. States that she does feel weak, unbalanced while walking. She lives by herself at home Review of Systems 10-point ROS is otherwise unremarkable Physical Examination - Vital Signs Temperature: 98.2 F Blood Pressure: 162/77 Pulse: 85 Respirations: 16 Pulse Ox (%): 92 - Physical Exam General: Alert, In no apparent distress, Oriented x3 HEENT: Atraumatic, PERRLA, EOMI Neck: Supple, JVD not distended Respiratory: Clear to auscultation bilaterally, Normal air movement Cardiovascular: Regular rate/rhythm, Normal S1 S2 Gastrointestinal: Normal bowel sounds, No tenderness Musculoskeletal: No tenderness Integumentary: No rashes Neurological: Normal speech, Normal tone, Normal affect Lymphatics: No axilla or inguinal lymphadenopathy - Studies Microbiology Data (last 24 hrs): 10/15/18 11:10 Blood - Blood Aerobic Blood Culture - Final No growth in 5 days. 10/15/18 11:10 Blood - Blood Anaerobic Blood Culture - Final No growth in 5 days. 10/15/18 10:52 Blood - Blood Aerobic Blood Culture - Final No growth in 5 days. 10/15/18 10:52 Blood - Blood Anaerobic Blood Culture - Final No growth in 5 days. Assessment And Plan - Current Problems (Diagnosis) (1) Pneumonia Current Visit: Yes Status: Acute Qualifiers: Pneumonia type: due to unspecified organism Laterality: right Lung location: upper lobe of lung Qualified Code(s): J18.1 - Lobar pneumonia, unspecified organism (2) UTI (urinary tract infection) Onset Date: 11/13/17 Current Visit: Yes Status: Acute Qualifiers: Urinary tract infection type: acute cystitis Hematuria presence: without hematuria Qualified Code(s): N30.00 - Acute cystitis without hematuria (3) Hypothyroidism Onset Date: 11/13/17 Current Visit: No Status: Chronic Qualifiers: (4) Multiple sclerosis Onset Date: 11/13/17 Current Visit: No Status: Chronic (5) Urinary incontinence Onset Date: 11/13/17 Current Visit: No Status: Chronic Qualifiers: Urinary Incontinence type: unspecified incontinence Qualified Code(s): R32 - Unspecified urinary incontinence (6) Debility Current Visit: Yes Status: Acute (7) Generalized weakness Current Visit: Yes Status: Acute - Plan Pneumonia Continue IV antibiotics with Levaquin. Will convert to PO on discharge to complete a 10 day course. Repeat CXR with significant improvement. Continue supplemental oxygen as needed Afebrile overnight, hemodynamically stable Discontinue IVF as patient eating and drinking well UTI (urinary tract infection) Continue IV antibiotics as above. Urine cultures without any growth She will have to reschedule her urology appointment as I believe she may need further evaluation of her incontinence, likely secondary to her MS. This is likely the underlying source of her multiple UTIs. Hypothyroidism Stable, continue home medications Multiple sclerosis Urinary incontinence Chronic history of urinary incontinence. She will have to reschedule Urology appointment (Dr. Kline) upon discharge from here Debility/generalized weakness Physical therapy consult placed She would benefit from [facility] facility placement with some physical therapy. She does live alone, has some imbalance and generalized weakness that would be worrisome for falls short to be home alone. Social work consulted for [facility] facility placement, pending DVT prophylaxis: Lovenox GI prophylaxis: None Diet: Regular Disposition: Pending placement at [facility]. [facility]charge Plan: [facility]
[2018-10-20 16:34] VITALS: BP 158/67; TEMP 99.5
== END 2018-10-20 16:33 | DRG 194 ==
LOC: ER 09:52 → ERHOLD 13:28 → 4TH 14:21
PROVIDERS: ADMIT Family Medicine; ATTEND Family Medicine
DX: J18.1 Lobar pneumonia, unspecified organism (principal); N30.00 Acute cystitis without hematuria; E44.0 Moderate protein-calorie malnutrition; Z68.1 Body mass index [BMI] 19.9 or less, adult; Z87.891 Personal history of nicotine dependence; E03.9 Hypothyroidism, unspecified; G35 Multiple sclerosis; R32 Unspecified urinary incontinence; R53.81 Other malaise; R53.1 Weakness
CPT/HCPCS: 36415; 51702; 71045; 80048; 80053; 80076; 81003; 81015; 83605; 83735; 83880; 84100; 84145; 84484; 85025; 85610; 87040; 87086; 87088; 87804; 93005; 94760; 96374; 96375; 97110; 97116; 97162; 97530; 99285; J2543; J3475; J7030